=== PATIENT | female | born 1985 | race Caucasian/White ===

== ENCOUNTER 2017-11-07 19:27 | Emergency (ER) | payer MEDICAID ==
[2017-11-07] MEDS ORDERED: Ketorolac 30 MG/ML SDV IVPUSH ONE (19:54)
--- NOTE | 2017-11-07 19:59 | EDM.PDOC ---
ED HPI GENERAL MEDICAL PROBLEM - General Chief Complaint: Headache Stated Complaint: HEAD PRESSURE/BLURRY VISION Time Seen by Provider: 11/07/17 19:47 Source of Information: Reports: Patient, RN Notes Reviewed History Limitations: Reports: No Limitations - History of Present Illness INITIAL COMMENTS - FREE TEXT/NARRATIVE: 32-year-old female presents to the emergency department today with complaint of headache, she states this is the worst headache of her life. She awoke this morning was nauseated but able to go to work. After returning home from work she took a nap awoke from her nap about 5 hours prior vomited once had severe headache rated 9 out of 10 described as pressure bandlike in the front. She denies any trauma or fevers no history of migraines, no photophobia no phonophobia no family history of migraines headache Pain Score (Numeric/FACES): 9 - Related Data Allergies Allergy/AdvReac Type Severity Reaction Status Date / Time acetaminophen Allergy Rash Verified 11/07/17 19:39 hydrocodone [From Vicodin] Allergy Rash Verified 11/07/17 19:39 peanut Allergy Anaphylactic Verified 11/07/17 19:39 Shock shellfish Allergy Anaphylactic Uncoded 11/07/17 19:39 Shock Home Meds: Home Meds Albuterol [IJP: Ventolin HFA] 2 puff INH .TWICE DAILY PRN 11/07/17 [History] Venlafaxine [Effexor] 75 mg PO DAILY 11/07/17 [History] Zolpidem [Ambien] 5 mg PO BEDTIME PRN 11/07/17 [History] Past Medical History 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: Reports: Asthma 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: , 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 Musculoskeletal History: Reports: Fracture Neurological History: Reports: Concussion Psychiatric History: Reports: Anxiety, Depression, OCD Endocrine/Metabolic History: Reports: Obesity/BMI 30+ Hematologic History: Reports: Blood Transfusion(s) - Past Surgical History HEENT Surgical History: Reports: Oral Surgery GI Surgical History: Reports: Appendectomy Female Surgical History: Reports: Tubal Ligation Social & Family History - Tobacco Use Smoking Status *Q: Current Every Day Smoker Years of Tobacco use: 18 Packs/Tins Daily: 0.7 - Caffeine Use Caffeine Use: Reports: Energy Drinks - Alcohol Use Days Per Week of Alcohol Use: 1 Number of Drinks Per Day: 2 Total Drinks Per Week: 2 - Recreational Drug Use Recreational Drug Use: No ED ROS GENERAL - Review of Systems Review Of Systems: See Below Constitutional: Denies: Fever, Chills HEENT: Reports: Vision Change. Denies: Ear Pain, Eye Pain Respiratory: Reports: No Symptoms Cardiovascular: Reports: No Symptoms GI/Abdominal: Reports: Nausea, Vomiting : Reports: No Symptoms Musculoskeletal: Reports: No Symptoms Skin: Reports: No Symptoms Neurological: Reports: No Symptoms - Physical Exam Exam: See Below Exam Limited By: No Limitations General Appearance: Alert, WD/WN, No Apparent Distress Eye Exam: Bilateral Eye: Normal Fundi, Normal Inspection Throat/Mouth: Normal Inspection, Normal Lips, Normal Teeth, Normal Gums, Normal Oropharynx, Normal Voice, No Airway Compromise Head Exam: Atraumatic, Normocephalic Neck: Normal Inspection, Supple, Non-Tender, Full Range of Motion Respiratory/Chest: No Respiratory Distress Course - Vital Signs Last Recorded V/S: Last Vital Signs Temp 97.5 F 11/07/17 19:35 Pulse 72 11/07/17 21:02 Resp 15 11/07/17 21:02 BP 99/51 L 11/07/17 21:02 Pulse Ox 98 11/07/17 21:02 - Orders/Labs/Meds Orders: Active Orders 24 hr Category Date Time Status Peripheral IV Care [RC] . DIRECTED Care 11/07/17 19:55 Active Head wo Cont [CT] Stat Exams 11/07/17 19:55 Taken Lactated Ringers [Ringers, Lactated] 1,000 ml Med 11/07/17 20:48 Active IV BOLUS Sodium Chloride 0.9% [Saline Flush] Med 11/07/17 19:55 Active 10 ml FLUSH ASDIRECTED PRN Peripheral IV Insertion Adult [OM.PC] Urgent Oth 11/07/17 19:54 Ordered Medication Orders Lactated Ringer's (Ringers, Lactated) 1,000 mls @ 999 mls/hr IV BOLUS ONE Stop: 11/07/17 21:48 Last Admin: 11/07/17 20:56 Dose: 999 mls/hr Sodium Chloride (Saline Flush) 10 ml FLUSH ASDIRECTED PRN PRN Reason: Keep Vein Open Last Admin: 11/07/17 21:02 Dose: 10 ml Admin: 11/07/17 20:15 Dose: 10 ml Meds: Medications Generic Name Dose Route Start Last Admin Trade Name Eduardo PRN Reason Stop Dose Admin Lactated Ringer's 1,000 mls @ 999 mls/hr 11/07/17 20:48 11/07/17 20:56 Ringers, Lactated IV 11/07/17 21:48 999 mls/hr BOLUS ONE Administration Sodium Chloride 10 ml 11/07/17 19:55 11/07/17 21:02 Saline Flush FLUSH 10 ml ASDIRECTED PRN Administration Keep Vein Open Discontinued Medications Generic Name Dose Route Start Last Admin Trade Name Eduardo PRN Reason Stop Dose Admin Diphenhydramine HCl 25 mg 11/07/17 20:48 11/07/17 20:59 Benadryl IVPUSH 11/07/17 20:49 25 mg ONETIME ONE Administration Ketorolac Tromethamine 30 mg 11/07/17 19:54 11/07/17 20:13 Toradol IVPUSH 11/07/17 19:55 30 mg ONETIME ONE Administration Prochlorperazine Edisylate 5 mg 11/07/17 20:48 11/07/17 20:57 Compazine IVPUSH 11/07/17 20:49 5 mg ONETIME ONE Administration Departure - Departure Time of Disposition: 21:40 Disposition: Home, Self-Care 01 Condition: Good Clinical Impression: Head ache Qualifiers: Headache type: unspecified Headache chronicity pattern: acute headache Intractability: not intractable Qualified Code(s): R51 - Headache - Discharge Information Referrals: PCP,None [Primary Care Provider] - Forms: ED Department Discharge Additional Instructions: Please followup with your primary care provider in 3-5 days if not better, please call return to the emergency department with worsening of symptoms. - My Orders Last 24 Hours: My Active Orders 11/07/17 19:54 Peripheral IV Insertion Adult [OM.PC] Urgent 11/07/17 19:55 Peripheral IV Care [RC] . DIRECTED Head wo Cont [CT] Stat Sodium Chloride 0.9% [Saline Flush] 10 ml FLUSH ASDIRECTED PRN 11/07/17 20:48 Lactated Ringers [Ringers, Lactated] 1,000 ml IV BOLUS - Assessment/Plan Last 24 Hours: My Active Orders 11/07/17 19:54 Peripheral IV Insertion Adult [OM.PC] Urgent 11/07/17 19:55 Peripheral IV Care [RC] . DIRECTED Head wo Cont [CT] Stat Sodium Chloride 0.9% [Saline Flush] 10 ml FLUSH ASDIRECTED PRN 11/07/17 20:48 Lactated Ringers [Ringers, Lactated] 1,000 ml IV BOLUS Plan: Assessment Acuity = acute Site and laterality = headache Etiology = suspicious for migraine variant Manifestations = none Location of injury = Home Lab values = CT scan of head shows no acute process Plan She had good improvement with combination Toradol, Compazine, fluids and Benadryl headache improved from a 9 out of 10 to 3 out of 10, she will be discharged home follow-up with primary care 3-5 days if no improvement This note was dictated using [employer] voice recognition software please call with any questions on syntax or dianna.
[2017-11-07] MEDS: Sodium Chloride 0.9% 10 ML Syringe FLUSH PRN ×2 (20:15→21:02)
[2017-11-07] MEDS ORDERED: diphenhydrAMINE 50 MG/ML SDV IVPUSH ONE (20:48)
[2017-11-07] MEDS ORDERED: Prochlorperazine 10 MG/2 ML SDV IVPUSH ONE (20:48)
[2017-11-07] MEDS ORDERED: Lactated Ringers 1,000 ML IV ONE (20:48)
== END 2017-11-07 22:07 | disposition home or self-care (01) ==
LOC: JP.ED 19:27
DX: R51 Headache (principal); E66.9 Obesity, unspecified; F17.210 Nicotine dependence, cigarettes, uncomplicated; Z91.013 Allergy to seafood; Z91.018 Allergy to other foods; Z88.5 Allergy status to narcotic agent; Z79.899 Other long term (current) drug therapy
CPT/HCPCS: 70450; 96361; 96374; 96375; 99284; J0780; J1200; J1885; J7050; J7120

== ENCOUNTER 2020-11-20 15:36 | Emergency (ER) | payer SELFPAY ==
--- NOTE | 2020-11-20 16:58 | EDM.PDOC ---
ED HPI GENERAL MEDICAL PROBLEM - General Chief Complaint: Upper Extremity Injury/Pain Stated Complaint: RIGHT SHOULDER PAIN FROM FALL Time Seen by Provider: 11/20/20 17:10 Source of Information: Reports: Patient, Old Records History Limitations: Reports: No Limitations - History of Present Illness INITIAL COMMENTS - FREE TEXT/NARRATIVE: 35 yo female fell at work about 1 pm today landing on her R elbow with resulting R shoulder pain and inability to move that arm much at the shoulder. Has a little tingling in the R hand. No other injuries. 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 Pain Score (Numeric/FACES): 8 - Related Data Allergies Allergy/AdvReac Type Severity Reaction Status Date / Time acetaminophen Allergy Rash Verified 11/20/20 16:04 hydrocodone [From Vicodin] Allergy Rash Verified 11/20/20 16:04 peanut Allergy Anaphylactic Verified 11/20/20 16:04 Shock shellfish Allergy Anaphylactic Uncoded 11/20/20 16:04 Shock Past Medical History 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: Reports: Asthma 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: , 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 Musculoskeletal History: Reports: Fracture Neurological History: Reports: Concussion Psychiatric History: Reports: Anxiety, Depression, OCD Endocrine/Metabolic History: Reports: Obesity/BMI 30+ Hematologic History: Reports: Blood Transfusion(s) - Past Surgical History HEENT Surgical History: Reports: Oral Surgery GI Surgical History: Reports: Appendectomy Female Surgical History: Reports: Tubal Ligation Social & Family History - Tobacco Use Tobacco Use Status *Q: Current Every Day Tobacco User Years of Tobacco use: 18 Packs/Tins Daily: 0.5 - Caffeine Use Caffeine Use: Reports: Energy Drinks - Recreational Drug Use Recreational Drug Use: No Review of Systems - Review of Systems Review Of Systems: See Below Constitutional: Reports: No Symptoms Musculoskeletal: Reports: Shoulder Pain (right) Skin: Reports: No Symptoms Neurological: Reports: Tingling (slight in fingers only of R hand) Psychiatric: Reports: No Symptoms ED EXAM, GENERAL - Physical Exam Exam: See Below Exam Limited By: No Limitations General Appearance: Alert, WD/WN, No Apparent Distress, Obese Throat/Mouth: Normal Lips, Normal Voice, No Airway Compromise Head: Atraumatic, Normocephalic Neck: Normal Inspection Extremities: Normal Inspection, No Pedal Edema, Limited Range of Motion (of R shoulder. Some tenderness over the R scapula. ). No: Normal Range of Motion, Pedal Edema, Increased Warmth, Redness Neurological: Alert, Oriented, CN II-XII Intact, Normal Cognition, No Motor/Sensory Deficits Skin Exam: Warm, Dry, Intact, Normal Color, No Rash Course - Vital Signs Last Recorded V/S: Last Vital Signs Temp 36.6 C 11/20/20 16:05 Pulse 78 11/20/20 16:05 Resp 12 11/20/20 16:05 BP 120/71 11/20/20 16:05 Pulse Ox 98 11/20/20 16:05 - Orders/Labs/Meds Orders: Active Orders 24 hr Category Date Time Status Shoulder Comp Rt [CR] Stat Exams 11/20/20 16:57 Ordered - Radiology Interpretation Free Text/Narrative:: R shoulder X-ray-neg Departure - Departure Time of Disposition: 17:50 Disposition: Home, Self-Care 01 Condition: Fair Clinical Impression: Right shoulder strain Qualifiers: Encounter type: initial encounter Qualified Code(s): S46.911A - Strain of unspecified muscle, fascia and tendon at shoulder and upper arm level, right arm, initial encounter - Discharge Information *PRESCRIPTION DRUG MONITORING PROGRAM REVIEWED*: No *COPY OF PRESCRIPTION DRUG MONITORING REPORT IN PATIENT CATHERINE: No Instructions: Shoulder Pain, [id number] Referrals: PCP,None [Primary Care Provider] - Forms: ED Department Discharge Additional Instructions: Wear your sling for support. Take ibuprofen and/or acetaminophen for pain relief. No over the head use of your right arm. If not improving any by mid week request an orthopedic referral from your primary care provider so you can be assessed for a possible rotator cuff injury. Sepsis Event Note (ED) - Evaluation Sepsis Screening Result: No Definite Risk - Focused Exam Vital Signs: Vital Signs Temp Pulse Resp BP Pulse Ox 11/20/20 16:05 36.6 C 78 12 120/71 98 - My Orders Last 24 Hours: My Active Orders 11/20/20 16:57 Shoulder Comp Rt [CR] Stat - Assessment/Plan Last 24 Hours: My Active Orders 11/20/20 16:57 Shoulder Comp Rt [CR] Stat
--- NOTE | 2020-11-22 09:28 | CR ---
Shoulder Comp Rt CLINICAL HISTORY: Fall FINDINGS: There is no acute fracture or dislocation in the right shoulder. Articular surfaces are smooth. Impression: Negative
== END 2020-11-20 18:12 | disposition home or self-care (01) ==
LOC: JP.ED 15:36
DX: S46.911A Strain of unspecified muscle, fascia and tendon at shoulder and upper arm level, right arm, initial encounter (principal); J45.909 Unspecified asthma, uncomplicated; E66.9 Obesity, unspecified; Z68.36 Body mass index [BMI] 36.0-36.9, adult; Z91.010 Allergy to peanuts; Z91.013 Allergy to seafood; Z88.5 Allergy status to narcotic agent; Z72.0 Tobacco use; W18.30XA Fall on same level, unspecified, initial encounter; Y92.89 Other specified places as the place of occurrence of the external cause
CPT/HCPCS: 73030-26-RT; 73030-RT; 99282; 99283-25

== ENCOUNTER 2021-05-28 11:44 | Emergency (ER) | payer MEDICAID ==
--- NOTE | 2021-05-28 13:44 | EDM.PDOC ---
ED HPI GENERAL MEDICAL PROBLEM - General Chief Complaint: Respiratory Problem Stated Complaint: BREATHING ISSUES Time Seen by Provider: 05/28/21 12:31 Source of Information: Reports: Patient, RN Notes Reviewed History Limitations: Reports: No Limitations - History of Present Illness INITIAL COMMENTS - FREE TEXT/NARRATIVE: 35-year-old female presents emergency department day complaint of cough and shortness of breath, she is a tobacco user she has had exposures at home all of her children have been sick however they now have recovered they were tested negative for Covid. She states she does have a history of pneumonia a couple of times. 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 Musculoskeletal History: Reports: Fracture Neurological History: Reports: Concussion Psychiatric History: Reports: Anxiety, Depression, OCD Endocrine/Metabolic History: Reports: Obesity/BMI 30+ Hematologic History: Reports: Blood Transfusion(s) - Past Surgical History Head Surgeries/Procedures: Reports: None HEENT Surgical History: Reports: Oral Surgery Respiratory Surgical History: Reports: None GI Surgical History: Reports: Appendectomy Female Surgical History: Reports: Tubal Ligation Endocrine Surgical History: Reports: None Neurological Surgical History: Reports: None Dermatological Surgical History: Reports: None Social & Family History - Tobacco Use Tobacco Use Status *Q: Current Every Day Tobacco User Years of Tobacco use: 15 Packs/Tins Daily: 0.5 - Caffeine Use Caffeine Use: Reports: Energy Drinks - Recreational Drug Use Recreational Drug Use: No ED ROS GENERAL - Review of Systems Review Of Systems: See Below Constitutional: Reports: Fever HEENT: Reports: No Symptoms Respiratory: Reports: Shortness of Breath, Wheezing, Cough, Sputum Cardiovascular: Reports: Dyspnea on Exertion GI/Abdominal: Reports: No Symptoms ED EXAM, GENERAL - Physical Exam Exam: See Below Exam Limited By: No Limitations General Appearance: Alert, WD/WN, No Apparent Distress Ears: Normal External Exam, Normal Canal, Hearing Grossly Normal, Normal TMs Nose: Normal Inspection, Normal Mucosa, No Blood Throat/Mouth: Normal Inspection, Normal Lips, Normal Teeth, Normal Gums, Normal Oropharynx, Normal Voice, No Airway Compromise Head: Atraumatic, Normocephalic Neck: Normal Inspection, Supple, Non-Tender, Full Range of Motion Respiratory/Chest: No Respiratory Distress, Lungs Clear, Normal Breath Sounds, No Accessory Muscle Use, Chest Non-Tender Cardiovascular: Regular Rate, Rhythm, No Murmur Course - Vital Signs Last Recorded V/S: Last Vital Signs Temp 97.9 F 05/28/21 12:27 Pulse 119 H 05/28/21 12:27 Resp 18 05/28/21 12:27 BP 123/67 05/28/21 12:27 Pulse Ox 96 05/28/21 12:27 - Orders/Labs/Meds Labs: Laboratory Tests 05/28/21 Range/Units 12:31 SARS-CoV-2 RNA (CHANELL) Negative (NEGATIVE) Departure - Departure Time of Disposition: 13:43 Disposition: Home, Self-Care 01 Condition: Fair Clinical Impression: Acute bronchiolitis Qualifiers: Bronchiolitis organism: unspecified organism Qualified Code(s): J21.9 - Acute bronchiolitis, unspecified - Discharge Information Instructions: Acute Bronchitis, Adult, [id number] Referrals: PCP,None [Primary Care Provider] - Additional Instructions: Take full course of antibiotics, keep your follow-up appointment with your primary care on Sunday call return to the emergency department worsening of symptoms Sepsis Event Note (ED) - Focused Exam Vital Signs: Vital Signs Temp Pulse Resp BP Pulse Ox 05/28/21 12:27 97.9 F 119 H 18 123/67 96 - Assessment/Plan Plan: Assessment Acuity = acute Site and laterality = bronchitis Etiology = possible bacterial cause Manifestations = cough, sputum production Location of injury = Home Lab values = none Plan Given her history elected to treat empirically azithromycin 5-day course follow- up primary care this week This note was dictated using [employer] voice recognition software please call with any questions on syntax or grammar.
== END 2021-05-28 14:02 | disposition home or self-care (01) ==
LOC: JP.ED 11:44
DX: J21.9 Acute bronchiolitis, unspecified (principal); E66.9 Obesity, unspecified; Z68.37 Body mass index [BMI] 37.0-37.9, adult; Z72.0 Tobacco use; Z88.5 Allergy status to narcotic agent; Z91.013 Allergy to seafood; Z91.010 Allergy to peanuts; Z88.6 Allergy status to analgesic agent; Z20.822 Contact with and (suspected) exposure to COVID-19
CPT/HCPCS: 99284; U0002

== ENCOUNTER 2022-08-11 10:26 | Emergency (ER) | payer MEDICAID ==
[2022-08-11 11:29] LABS: CORONAVIRUS COVID-19 NAA NEGATIVE (NEGATIVE)
[2022-08-11 11:36] LABS: ESTIMATED GFR 97 mL/min (>60)
[2022-08-11 11:46] LABS: TROPONIN I HIGH SENSITIVITY < 4.0 pg/mL (<=60.3)
== END 2022-08-11 11:58 | disposition home or self-care (01) ==
LOC: JP.ED 10:26
DX: R07.89 Other chest pain (principal); E66.9 Obesity, unspecified; Z68.35 Body mass index [BMI] 35.0-35.9, adult; Z91.010 Allergy to peanuts; Z91.013 Allergy to seafood; Z88.5 Allergy status to narcotic agent; Z88.8 Allergy status to other drugs, medicaments and biological substances; Z87.891 Personal history of nicotine dependence; Z20.822 Contact with and (suspected) exposure to COVID-19
CPT/HCPCS: 0241U; 36415; 80048; 84484; 85025; 99284

== ENCOUNTER 2022-08-14 12:08 | Emergency (ER) | payer MEDICAID ==
[2022-08-14] MEDS ORDERED: Sodium Chloride 0.9% 10 ML Syringe FLUSH PRN ×2 (12:20→13:04)
[2022-08-14] MEDS ORDERED: Sodium Chloride 0.9% 1,000 ML IV ONE (13:04)
[2022-08-14] MEDS ORDERED: Ondansetron 4 MG/2 ML SDV IVPUSH ONE (13:04)
== END 2022-08-14 16:11 | disposition home or self-care (01) ==
LOC: JP.ED 12:08
DX: R00.2 Palpitations (principal); R55 Syncope and collapse; F41.9 Anxiety disorder, unspecified; Z91.010 Allergy to peanuts; Z88.5 Allergy status to narcotic agent; Z88.8 Allergy status to other drugs, medicaments and biological substances; E66.9 Obesity, unspecified; Z68.35 Body mass index [BMI] 35.0-35.9, adult
CPT/HCPCS: 36415; 80305; 81025; 84145; 84443; 85025; 85379; 93005; 96361; 96374; 99285; J2405; J3490; J7030

== ENCOUNTER 2022-09-03 19:58 | Emergency (ER) | payer MEDICAID ==
[2022-09-03] MEDS ORDERED: Sodium Chloride 0.9% 1,000 ML IV SCH (21:15)
[2022-09-03 21:35] LABS: ESTIMATED GFR 113 mL/min (>60)
[2022-09-03] MEDS ORDERED: Ketorolac 30 MG/ML SDV IM ONE (22:19)
== END 2022-09-03 22:40 | disposition home or self-care (01) ==
LOC: JP.ED 19:58
DX: R07.89 Other chest pain (principal); M62.838 Other muscle spasm; E66.9 Obesity, unspecified; Z68.35 Body mass index [BMI] 35.0-35.9, adult; Z87.891 Personal history of nicotine dependence; Z88.5 Allergy status to narcotic agent; Z91.010 Allergy to peanuts; Z91.013 Allergy to seafood; Z79.899 Other long term (current) drug therapy
CPT/HCPCS: 36415; 80053; 84484; 85025; 96372; 99285; J1885

== ENCOUNTER 2022-09-04 19:05 | Emergency (ER) | payer MEDICAID ==
[2022-09-04] MEDS ORDERED: Sodium Chloride 0.9% 10 ML Syringe FLUSH PRN (20:03)
[2022-09-04] MEDS ORDERED: Iopamidol 755 Mg/ML 100 ML Bottle IV ONE (20:11)
[2022-09-04] MEDS ORDERED: Sodium Chloride 0.9% 75 ML IV ONE (20:11)
[2022-09-04] MEDS ORDERED: Sodium Chloride 0.9% 10 ML Syringe FLUSH ONE (20:11)
== END 2022-09-04 22:21 | disposition home or self-care (01) ==
LOC: JP.ED 19:05
DX: F41.9 Anxiety disorder, unspecified (principal); R07.89 Other chest pain; F32.A Depression, unspecified; E66.9 Obesity, unspecified; Z68.35 Body mass index [BMI] 35.0-35.9, adult; Z79.899 Other long term (current) drug therapy
CPT/HCPCS: 36415; 71275; 84443; 85379; 86140; 99285; J3490; Q9967

== ENCOUNTER 2022-09-14 18:49 | Emergency (ER) | payer MEDICAID ==
[2022-09-14] MEDS ORDERED: Sodium Chloride 0.9% 10 ML Syringe FLUSH PRN (19:05)
[2022-09-14] MEDS ORDERED: Methocarbamol 500 MG Tab PO ONE (20:06)
[2022-09-14] MEDS ORDERED: Ketorolac 15 MG/ML SDV IM ONE (20:06)
[2022-09-14 20:20] LABS: ESTIMATED GFR 84 mL/min (>60); TROPONIN I HIGH SENSITIVITY 5.1 pg/mL (<=60.3)
== END 2022-09-14 21:34 | disposition home or self-care (01) ==
LOC: JP.ED 18:49
DX: S29.012A Strain of muscle and tendon of back wall of thorax, initial encounter (principal); M62.838 Other muscle spasm; F17.210 Nicotine dependence, cigarettes, uncomplicated; E66.9 Obesity, unspecified; Z68.34 Body mass index [BMI] 34.0-34.9, adult; Z91.010 Allergy to peanuts; Z91.013 Allergy to seafood; Z88.5 Allergy status to narcotic agent; Z88.8 Allergy status to other drugs, medicaments and biological substances
CPT/HCPCS: 36415; 80053; 84484; 85025; 85379; 86140; 93005; 96372; 99285; A9270; J1885; 93010; 99283

== ENCOUNTER 2022-09-29 07:05 | Day surgery (SDC) | payer MEDICAID ==
[2022-09-29] MEDS ORDERED: Glycopyrrolate 0.2 MG/ML 2 ML SDV IVPUSH ONE (07:30)
[2022-09-29] MEDS ORDERED: Dextrose 5%-Lactated Ringers 1,000 ML IV SCH (07:30)
[2022-09-29] MEDS ORDERED: fentaNYL 100 MCG/2 ML SDV ONE (07:49)
[2022-09-29] MEDS ORDERED: Midazolam 1 MG/ML 2 ML SDV ONE (07:50)
[2022-09-29] MEDS ORDERED: Propofol 200 MG/20 ML SDV ONE (07:50)
== END 2022-09-29 10:09 | disposition home or self-care (01) ==
LOC: JP.SDS 07:05
PROVIDERS: ATTEND Surgery
DX: R13.10 Dysphagia, unspecified (principal); K31.89 Other diseases of stomach and duodenum; F17.200 Nicotine dependence, unspecified, uncomplicated; E66.9 Obesity, unspecified; K44.9 Diaphragmatic hernia without obstruction or gangrene; Z79.899 Other long term (current) drug therapy; Z88.5 Allergy status to narcotic agent; Z88.6 Allergy status to analgesic agent; Z91.013 Allergy to seafood
CPT/HCPCS: 43239; 87081; 88305; J2250; J2704; J3010; J3490; J7121